=== PATIENT | female | born 1980 | race American Indian/Alaskan Native ===

== ENCOUNTER 2021-12-26 09:20 | Outpatient (CLI) | payer BC ==
--- NOTE | 2021-12-26 11:04 | Cat Scan Report ---
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 TECHNIQUE: Axial CT images were obtained through the chest, abdomen, and pelvis after 100 cc of Omnip aque [address] scans at this location are performed using CT dose reduction for ALARA b y means of automated exposure control. COMPARISON: CT pelvis with contrast dated 08/09/2014 FINDINGS: HEART: No significant abnormality. CORONARY ARTERY CALCIFICATION: None. THORACIC AORTA: No significant abnormality. MEDIASTINUM / RICHI: No significant abnormality. PLEURA: No pleural effusion. No pneumothorax. LUNGS: No acute air space or interstitial disease. ADDITIONAL CHEST FINDINGS: None. LIVER: There is suggestion of subtle surface nodularity to the liver which could represent early cirr hotic changes. No liver mass is detected. GALLBLADDER: Surgically removed BILE DUCTS: No significant abnormality. PANCREAS: No significant abnormality. SPLEEN: No significant abnormality. ADRENALS: No significant abnormality. RIGHT KIDNEY / URETER: No significant abnormality. LEFT KIDNEY / URETER: No significant abnormality. STOMACH and SMALL BOWEL: There is a hypodense mass with intimate association to the lesser curvature the stomach measuring up to 5.2 x 5.2 x 3.4 cm. The remainder of the stomach and small bowel loops ar e unremarkable. COLON: No significant abnormality. APPENDIX: No significant abnormality. PERITONEUM: No free fluid. No free air. No fluid collection. LYMPH NODES: No pathologic adenopathy is detected. AORTA / ARTERIES: No significant abnormality. IVC / VEINS: No significant abnormality. URINARY BLADDER: The bladder is mostly empty but grossly unremarkable. REPRODUCTIVE ORGANS: There is a large solid soft tissue density mass in the midline pelvis/lower abdo men measuring up to 19.4 x 12.9 x 14.4 cm. On the previous CT pelvis this mass was located in the cul -de-sac and measured 8.6 x 8.9 x 8.0 cm. This lesion appears to arise from the right adnexa concernin g for an ovarian lesion although an exophytic fibroid from the uterine fundus is difficult to exclude . No additional uterine fibroids are identified. I suspect this represents a large right ovarian mass . The left ovary is unremarkable. ADDITIONAL FINDINGS: None. SKELETAL SYSTEM: No significant abnormality. IMPRESSION: Hypodense mass lesion arising from the lesser curvature of the stomach as described above which could represent a gastrointestinal stromal tumor is noted in the patient's history. Other etiologies are n ot excluded. Please correlate with the patient's history. There are no previous CTs of the abdomen at this facility. Large soft tissue density mass in the pelvis as described above. I suspect this represents a right ov mattie mass which has increased in size significantly since 2013 as described above. An exophytic fibr oid could also be considered. There is no evidence for metastatic disease. Question early cirrhotic changes in the liver. Cholecystectomy. Signer Name: Jack Green Jr, MD Signed: 12/26/2021 10:59 AM Workstation Name: [id number]
== END 2021-12-26 09:21 | disposition home or self-care (01) ==
LOC: CT 09:20
PROVIDERS: ATTEND Internal Medicine Hematology & Oncology
DX: C49.A2 Gastrointestinal stromal tumor of stomach (principal); Z85.44 Personal history of malignant neoplasm of other female genital organs; Z90.49 Acquired absence of other specified parts of digestive tract
CPT/HCPCS: 71260; 74177; Q9967